=== PATIENT | male | born 1995 | race Caucasian/White ===

== ENCOUNTER 2017-11-23 16:05 | Emergency (ER) | payer SELFPAY ==
[~2017-11-23] VITALS: Ht 180.3 cm; Wt 63.0 kg
[2017-11-23 19:02] LABS: BASOPHILS % 0.3 % (0.0-2.0); EOSINOPHILS % 1.2 % (0.0-5.0); HEMATOCRIT. 45.6 % (42.0-52.0); HEMOGLOBIN. 15.9 g/dL (14.0-18.0); LYMPHOCYTES % 37.4 % (20.0-50.0); MEAN CORPUSCULAR HEMOGLOBIN 31.3 pg (28.0-32.0); MEAN CORPUSCULAR VOLUME 89.9 fL (80.0-94.0); MEAN PLATELET VOLUME 8.3 fl (7.4-10.4); NEUTROPHILS % 52.1 % (40.0-76.0); PLATELET 241 x1000/uL (130-400); RED BLOOD CELL COUNT 5.07 mill/uL (4.7-6.1); RED CELL DISTRIBUTION WIDTH 13.2 % (11.6-14.6)
[2017-11-23 19:06] LABS: CHLORIDE 107 mEq/L (98-107)
[2017-11-23 19:17] LABS: CARBON DIOXIDE 28 mEq/L (21-32); TROPONIN I < 0.02 ng/mL (0.00-0.04)
[2017-11-23 21:01] VITALS: BP 150/97
== END 2017-11-23 21:03 | disposition home or self-care (01) ==
LOC: ER 16:05
DX: R07.9 Chest pain, unspecified (principal); F17.200 Nicotine dependence, unspecified, uncomplicated; F12.10 Cannabis abuse, uncomplicated
CPT/HCPCS: 36415; 71045; 80053; 84484; 85025; 85610; 93005; 99285